=== PATIENT | male | born 1965 | race Caucasian/White ===

== ENCOUNTER 2019-02-19 16:08 | Emergency (ER) | payer BC ==
[2019-02-19 16:24] VITALS: BP 140/84; PULSE 90
[2019-02-19] MEDS ORDERED: Ondansetron 4 MG/2 ML SDV IVPUSH ONE (16:45)
[2019-02-19] MEDS ORDERED: Sodium Chloride 0.9% 1,000 ML IV SCH (16:45)
[2019-02-19] MEDS ORDERED: HYDROmorphone 0.5 MG/0.5 ML Syringe IVPUSH ONE (16:47)
--- NOTE | 2019-02-19 16:57 | EDM.PDOC ---
ED HPI GENERAL MEDICAL PROBLEM - General Chief Complaint: Abdominal Pain Stated Complaint: ABDOMINAL PAIN Time Seen by Provider: 02/19/19 16:26 Source of Information: Reports: Patient, RN Notes Reviewed History Limitations: Reports: No Limitations - History of Present Illness INITIAL COMMENTS - FREE TEXT/NARRATIVE: Patient is a 53-year-old male who presents to ED for evaluation of abdominal pain. Patient states he has a history of diverticulitis, and this feels somewhat similar to his flares that he gets. He notes he has been having some issues for the last month and a 2:30 months, however over the last 3 days this has worsened in intensity. He notes some nausea, abdominal pain, loose stools, he states he cannot remember the last time he had a solid stool. He has been trying to use prune juice and laxatives at home for management of this. Patient states that the abdominal pain kind of moves around, but he has noticed some dark maroon red type stools lately. He notes his last colonoscopy was about 3 years ago. Patient notes he has had some prior hernia surgeries, and a urinary bladder surgery when he was a young child. He did not take any sort of pain medications at home for management of this. He would rate his pain at a 10 out of 10 today. The patient denies any sort of fevers and chills, however he states that he ate some hot and cold flashes and the nausea comes and goes with the waves of pain. abdomen Pain Score (Numeric/FACES): 10 - Related Data Allergies Allergy/AdvReac Type Severity Reaction Status Date / Time aspirin Allergy Anaphylactic Verified 02/19/19 16:25 Shock naproxen [From Aleve] Allergy Anaphylactic Verified 02/19/19 16:25 Shock Home Meds: Home Meds . [No Known Home Meds] 12/13/18 [History] Past Medical History - Past Health History Medical/Surgical History: Denies Medical/Surgical History HEENT History: Reports: Other (See Below) Other HEENT History: tonsilitis, tooth infections/abscess Gastrointestinal History: Reports: Diverticulosis Genitourinary History: Reports: Other (See Below) Other Genitourinary History: Bladder surgery Neurological History: Reports: Concussion Endocrine/Metabolic History: Reports: Obesity/BMI 30+ - Infectious Disease History Infectious Disease History: Reports: Chicken Pox, Measles, Mumps - Past Surgical History HEENT Surgical History: Reports: Oral Surgery GI Surgical History: Reports: Colonoscopy, Hernia Repair/Other Male Surgical History: Reports: Other (See Below) Social & Family History - Family History Family Medical History: Noncontributory - Tobacco Use Smoking Status *Q: Current Some Day Smoker Years of Tobacco use: 10 Packs/Tins Daily: 0.2 - Caffeine Use Caffeine Use: Reports: None - Recreational Drug Use Recreational Drug Use: No - Living Situation & Occupation Living situation: Reports: , with Family (Daughter) 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 Denies: Vomiting : Denies: Dysuria, Frequency, Urgency Musculoskeletal: Reports: No Symptoms Skin: Reports: No Symptoms Neurological: Reports: No Symptoms Psychiatric: Reports: No Symptoms Hematologic/Lymphatic: Reports: No Symptoms Immunologic: Reports: No Symptoms ED EXAM, GI/ABD - Physical Exam Exam: See Below Exam Limited By: No Limitations General Appearance: Alert, WD/WN, No Apparent Distress Eyes: Bilateral: Normal Appearance Throat/Mouth: Normal Inspection, Normal Lips, Normal Teeth, Normal Gums, Normal Oropharynx, Normal Voice, No Airway Compromise Head: Atraumatic, Normocephalic Respiratory/Chest: No Respiratory Distress, Lungs Clear, Normal Breath Sounds, No Accessory Muscle Use, Chest Non-Tender Cardiovascular: Normal Peripheral Pulses, Regular Rate, Rhythm, No Murmur GI/Abdominal Exam: Normal Bowel Sounds, Soft, No Distention, No Mass, Tender ( LLQ) Rectal (Males) Exam: Normal Exam, Normal Rectal Tone, Prostate Normal, Heme - Stool Extremities: Normal Inspection, Normal Capillary Refill Neurological: Alert, Oriented, Normal Cognition, No Motor/Sensory Deficits Psychiatric: Normal Affect, Normal Mood Skin Exam: Warm, Dry, Intact, Normal Color, No Rash Course - Vital Signs Last Recorded V/S: Last Vital Signs Temp 97.3 F 02/19/19 16:21 Pulse 90 02/19/19 16:21 Resp 19 02/19/19 16:21 BP 140/84 02/19/19 16:21 Pulse Ox 93 L 02/19/19 16:21 - Orders/Labs/Meds Orders: Active Orders 24 hr Category Date Time Status Peripheral IV Care [RC] . DIRECTED Care 02/19/19 16:46 Ordered UA W/MICROSCOPIC [URIN] Stat Lab 02/19/19 16:45 Ordered Sodium Chloride 0.9% [Normal Saline] 1,000 ml Med 02/19/19 16:45 Ordered IV ASDIRECTED Sodium Chloride 0.9% [Saline Flush] Med 02/19/19 16:46 Ordered 10 ml FLUSH ASDIRECTED PRN Peripheral IV Insertion Adult [OM.PC] Stat Oth 02/19/19 16:46 Ordered Medication Orders Sodium Chloride (Normal Saline) 1,000 mls @ 999 mls/hr IV ASDIRECTED JACOB Last Admin: 02/19/19 17:04 Dose: 999 mls/hr Sodium Chloride (Saline Flush) 10 ml FLUSH ASDIRECTED PRN PRN Reason: Keep Vein Open Last Admin: 02/19/19 18:21 Dose: 10 ml Admin: 02/19/19 17:15 Dose: 10 ml Labs: Laboratory Tests 02/19/19 02/19/19 Range/Units 16:32 16:32 WBC 9.50 H (4.23-9.07) K/mm3 RBC 5.31 (4.63-6.08) M/mm3 Hgb 16.3 (13.7-17.5) gm/dl Hct 48.9 (40.1-51.0) % MCV 92.1 (79.0-92.2) fl MCH 30.7 (25.7-32.2) pg MCHC 33.3 (32.2-35.5) g/dl RDW Std Deviation 45.3 H (35.1-43.9) fL Plt Count 241 (163-337) K/mm3 MPV 10.2 (9.4-12.3) fl Neutrophils % (Manual) 70 H (40-60) % Band Neutrophils % 0 (0-10) % Lymphocytes % (Manual) 30 (20-40) % Atypical Lymphs % 0 % Monocytes % (Manual) 0 L (2-10) % Eosinophils % (Manual) 0 L (0.8-7.0) % Basophils % (Manual) 0 L (0.2-1.2) Platelet Estimate Adequate RBC Morph Comment Normal Sodium 141 (136-145) mEq/L Potassium 3.6 (3.5-5.1) mEq/L Chloride 105 (98-107) mEq/L Carbon Dioxide 24 (21-32) mEq/L Anion Gap 15.6 H (5-15) BUN 11 (7-18) mg/dL Creatinine 1.0 (0.7-1.3) mg/dL Est Cr Clr Drug Dosing 94.84 mL/min Estimated GFR (MDRD) > 60 (>60) mL/min BUN/Creatinine Ratio 11.0 L (14-18) Glucose 180 H (74-106) mg/dL Calcium 9.0 (8.5-10.1) mg/dL Total Bilirubin 0.3 (0.2-1.0) mg/dL AST 25 (15-37) U/L ALT 34 (16-63) U/L Alkaline Phosphatase 85 (46-116) U/L Total Protein 7.2 (6.4-8.2) g/dl Albumin 3.4 (3.4-5.0) g/dl Globulin 3.8 gm/dL Albumin/Globulin Ratio 0.9 L (1-2) Meds: Medications Generic Name Dose Route Start Last Admin Trade Name Freq PRN Reason Stop Dose Admin Sodium Chloride 1,000 mls @ 999 mls/hr 02/19/19 16:45 02/19/19 17:04 Normal Saline IV 999 mls/hr ASDIRECTED JACOB Administration Sodium Chloride 10 ml 02/19/19 16:46 02/19/19 18:21 Saline Flush FLUSH 10 ml ASDIRECTED PRN Administration Keep Vein Open Discontinued Medications Generic Name Dose Route Start Last Admin Trade Name Freq PRN Reason Stop Dose Admin Diatrizoate Meglum/Diatrizoate Sod 90 ml 02/19/19 18:01 02/19/19 18:21 Gastrografin 37% PO 02/19/19 18:02 90 ml ONETIME ONE Administration Hydromorphone HCl 0.5 mg 02/19/19 16:47 02/19/19 17:04 Dilaudid IVPUSH 02/19/19 16:48 0.5 mg ONETIME ONE Administration Iopamidol 100 ml 02/19/19 18:01 02/19/19 18:21 Isovue-370 (76%) IVPUSH 02/19/19 18:02 100 ml ONETIME ONE Administration Ondansetron HCl 4 mg 02/19/19 16:45 02/19/19 17:05 Zofran IVPUSH 02/19/19 16:46 4 mg ONETIME ONE Administration - Re-Assessments/Exams Free Text/Narrative Re-Assessment/Exam: 02/19/19 16:57 Patient presents to the ED for evaluation of abdominal pain, I did order CBC, CMP, UA, abdominal pelvis CT with contrast, 4 mg Zofran, 0.5 mg Dilaudid and some IV fluids for initial management. His pain is suspicious for a flare of his diverticulitis in nature. 02/19/19 18:[address] is done, and demonstrates a small liver cyst of 1.0 cm, and diverticuli within the sigmoid colon, but there is no definite inflammatory change surrounding these to indicate diverticulitis at this time. Of note the patient's rectal exam demonstrated heme-negative stool on re-exam. The patient' s white blood cell count is only very slightly mildly elevated at 9.5, which is very likely a stress reaction, we'll likely discharge the patient home with general recommendations and have him return if his symptoms should change or worsen. Departure - Departure Time of Disposition: 19:21 Disposition: Home, Self-Care 01 Condition: Fair Clinical Impression: Diverticula of colon Abdominal pain Qualifiers: Abdominal location: left lower quadrant Qualified Code(s): R10.32 - Left lower quadrant pain - Discharge Information *PRESCRIPTION DRUG MONITORING PROGRAM REVIEWED*: No *COPY OF PRESCRIPTION DRUG MONITORING REPORT IN PATIENT TRELL: No Instructions: Abdominal Pain, Adult, [id number] Referrals: PCP,None [Primary Care Provider] - Forms: ED Department Discharge Additional Instructions: You have been evaluated in the ED for abdominal pain. Your CT demonstrated that you do have diverticuli of the sigmoid colon, however there was no inflammation around these which would suggest an active diverticulitis. You have received IV fluid in the ED today with some IV pain medications. Over the next 24-48 hours please try to limit diet to clear liquids and advance as tolerate to a bland diet to alleviate symptoms. You may take [id number] Tylenol or ibuprofen every 6 hours for further pain relief. Please return to the ED if your symptoms should change or worsen. - My Orders Last 24 Hours: My Active Orders 02/19/19 16:45 UA W/MICROSCOPIC [URIN] Stat Sodium Chloride 0.9% [Normal Saline] 1,000 ml IV ASDIRECTED 02/19/19 16:46 Peripheral IV Care [RC] . DIRECTED Sodium Chloride 0.9% [Saline Flush] 10 ml FLUSH ASDIRECTED PRN Peripheral IV Insertion Adult [OM.PC] Stat - Assessment/Plan Last 24 Hours: My Active Orders 02/19/19 16:45 UA W/MICROSCOPIC [URIN] Stat Sodium Chloride 0.9% [Normal Saline] 1,000 ml IV ASDIRECTED 02/19/19 16:46 Peripheral IV Care [RC] . DIRECTED Sodium Chloride 0.9% [Saline Flush] 10 ml FLUSH ASDIRECTED PRN Peripheral IV Insertion Adult [OM.PC] Stat
[2019-02-19] MEDS: Sodium Chloride 0.9% 10 ML Syringe FLUSH PRN ×2 (17:15→18:21)
[2019-02-19] MEDS ORDERED: Diatrizoate Meglumine/Diatrizoate Sodium 37% 120 ML Bottle PO ONE (18:01)
[2019-02-19] MEDS ORDERED: Iopamidol 755 Mg/ML 100 ML Bottle IVPUSH ONE (18:01)
--- NOTE | 2019-02-19 18:47 | CT ---
CT abdomen and pelvis Technique: Multiple axial sections were obtained from above the dome of the diaphragm to the pubic symphysis. Intravenous and oral contrast has been given. Findings: Diverticuli are seen within the sigmoid colon. I do not see any definite inflammatory change to indicate diverticulitis. Appendix is seen and is normal in size. Visualized lung bases show nothing acute. Dome of the right lobe of the liver shows a low-density lesion which has Hounsfield unit measurements of a cyst and measures 1.0 cm. No additional abnormality is seen within the liver. Spleen appears within normal limits. Adrenal glands show no nodule. Pancreas is within normal limits. Gallbladder contains no calcified gallstones. Kidneys show symmetric contrast enhancement with no hydronephrosis or mass being seen. Aorta shows no aneurysm. No retroperitoneal adenopathy or mesenteric abnormalities are seen. No pelvic mass or adenopathy is seen. No free fluid or inflammatory change is seen. Delayed images shows contrast within the distal ureters and bladder. Bone window settings appear within normal limits for the patient's age. Impression: 1. Small liver cyst. 2. Nothing acute is appreciated on CT study of the abdomen and pelvis. Diagnostic code #2
== END 2019-02-19 19:33 | disposition home or self-care (01) ==
LOC: JD.ED 16:08
DX: K57.30 Diverticulosis of large intestine without perforation or abscess without bleeding (principal); E66.9 Obesity, unspecified; Z68.29 Body mass index [BMI] 29.0-29.9, adult; F17.210 Nicotine dependence, cigarettes, uncomplicated; Z88.8 Allergy status to other drugs, medicaments and biological substances
CPT/HCPCS: 36415; 74177; 80053; 85007; 85027; 96361; 96374; 96375; 99284; J1170; J2405; J7040; Q9963; Q9967

== ENCOUNTER → 2019-03-26 | Day surgery (SDC) | payer BC ==
[~2019-03-26] MED LIST: Albuterol 0.083% 2.5 MG/3 ML Neb Soln NEB SCH; FLU Vacc QS2019-20(6MOS+)/PF 60 MCG/0.5 ML SYRINGE IM ONE; Lactated Ringers 1,000 ML IV SCH; Lidocaine 1% 4 ML ONE; Lidocaine 1%/Sod Bicarbonate in NS 8.4% 1 ML Syringe IDERM PRN; Propofol 200 MG/20 ML SDV ONE; Sodium Chloride 0.9% 10 ML Syringe FLUSH PRN
--- NOTE | 2019-03-26 07:35 | PCM.PREANE ---
Preanesthetic Assessment - Anesthesia/Transfusion/Family Hx Anesthesia History: Prior Anesthesia Without Reaction Family History of Anesthesia Reaction: No Transfusion History: No Prior Transfusion(s) - Review of Systems General: No Symptoms Pulmonary: No Symptoms Cardiovascular: No Symptoms Gastrointestinal: No Symptoms Neurological: No Symptoms Other: Reports: None - Physical Assessment NPO Status Date: 03/25/19 NPO Status Time: 16:00 ASA Class: 2 Mental Status: Alert & Oriented x3 Airway Class: Mallampati = 1 Dentition: Reports: Broken Tooth/Teeth, Missing Tooth/Teeth ROM/Head Extension: Full Lungs: Clear to Auscultation, Normal Respiratory Effort Cardiovascular: Regular Rate, Regular Rhythm - Allergies Allergies/Adverse Reactions: Allergies Allergy/AdvReac Type Severity Reaction Status Date / Time aspirin Allergy Anaphylactic Verified 03/25/19 11:57 Shock naproxen [From Aleve] Allergy Anaphylactic Verified 03/25/19 11:57 Shock - Acknowledgements Anesthesia Type Planned: MAC Pt an Appropriate Candidate for the Planned Anesthesia: Yes Alternatives and Risks of Anesthesia Discussed w Pt/Guardian: Yes Pt/Guardian Understands and Agrees with Anesthesia Plan: Yes PreAnesthesia Questionnaire - Past Health History Medical/Surgical History: Denies Medical/Surgical History HEENT History: Reports: Sinusitis, Other (See Below) Other HEENT History: tonsilitis, tooth infections/abscess Cardiovascular History: Reports: None Respiratory History: Reports: Other (See Below) Other Respiratory History: acute bronchitis, mild reactive airway disease Gastrointestinal History: Reports: Chronic Diarrhea, Diverticulosis, GERD, Other (See Below) Other Gastrointestinal History: epigastric pain, LLQ pain Genitourinary History: Reports: Other (See Below) Other Genitourinary History: Bladder surgery FIRMWARE MANAGER History: Reports: None Musculoskeletal History: Reports: None Neurological History: Reports: Concussion Psychiatric History: Reports: None Endocrine/Metabolic History: Reports: Obesity/BMI 30+, Vitamin D Deficiency Hematologic History: Reports: None Immunologic History: Reports: None Oncologic (Cancer) History: Reports: None Dermatologic History: Reports: None - Infectious Disease History Infectious Disease History: Reports: Chicken Pox, Measles, Mumps - Past Surgical History Head Surgeries/Procedures: Reports: None HEENT Surgical History: Reports: Oral Surgery Cardiovascular Surgical History: Reports: None Respiratory Surgical History: Reports: None GI Surgical History: Reports: Colonoscopy, Hernia Repair/Other Female Surgical History: Reports: None Male Surgical History: Reports: None, Other (See Below) Musculoskeletal Surgical History: Reports: None Oncologic Surgical History: Reports: None Dermatological Surgical History: Reports: None - SUBSTANCE USE Smoking Status *Q: Current Every Day Smoker Recreational Drug Use History: No - HOME MEDS Home Medications: Home Meds Albuterol [Ventolin HFA] 1 - 2 puff INH Q4H PRN 03/25/19 [History] Ergocalciferol (Vitamin D2) [Vitamin D2] 50 mcg PO FR 03/25/19 [History] - CURRENT (IN HOUSE) MEDS Current Meds: Current Medications Albuterol (Proventil Neb Soln) 2.5 mg NEB ONETIME JACOB Stop: 03/26/19 18:00 Lactated Ringer's (Ringers, Lactated) 1,000 mls @ 125 mls/hr IV ASDIRECTED JACOB Stop: 03/26/19 23:00 Influenza Virus Vaccine (Fluzone Quad Syringe) 60 mcg IM .ONCE ONE Stop: 03/26/19 12:16 Lidocaine/Sodium Bicarbonate (Buffered Lidocaine 1% In Ns 8.4%) 0.25 ml IDERM ONETIME PRN PRN Reason: Prior to IV Start Stop: 03/26/19 18:00 Sodium Chloride (Saline Flush) 10 ml FLUSH ASDIRECTED PRN PRN Reason: Keep Vein Open Stop: 03/26/19 18:00 Discontinued Medications Lidocaine HCl (Xylocaine-Mpf 1%) Confirm Administered Dose 4 mls @ as directed .ROUTE .STK-MED ONE Stop: 03/26/19 07:10 Influenza Virus Vaccine (Pharmacy To Dose - Influenza Vaccine) 1 each IM ONETIME JACOB Propofol (Diprivan 20 Ml) Confirm Administered Dose 200 mg .ROUTE .STK-MED ONE Stop: 03/26/19 07:09
--- NOTE | 2019-03-26 08:36 | PCM.PRNOTE ---
- Free Text/Narrative Note: Date: 03/26/2019 Endoscopist: Skinny Chance MD Reason for procedure: screening colonoscopy, initial Hx: 53 yo man with history of diverticulitis years ago, treated with antibiotics , with diagnostic colonoscopy which was unsatisfactory due to poor prep. Detailed report: The patient was placed in the left lateral decubitus position and underwent MAC anesthesia. Once sedation was adequate, a time out was performed. Insepcted of the anus was normal. Digital rectal exam was unremarkable. The colonoscope was inserted and advanced all the way to the ileocecal valve. Prep was good. The scope was slowly withdrawn and the mucosa carefully inspected. No polyps were identified. There was scattered diverticular disease throughout the colon, most notable in the sigmoid. No significant hemorrhoidal disease or other pathology noted on retroflexion of the scope in the rectum. The patient tolerated the procedure well; no complications. Repeat screening in 5-10 years. Skinny Chance MD General Surgery
--- NOTE | 2019-03-26 08:40 | PCM48HPAN ---
Post Anesthesia Note - EVALUATION WITHIN 48HRS OF ANESTHETIC Vital Signs in Normal Range: Yes Patient Participated in Evaluation: Yes Respiratory Function Stable: Yes Airway Patent: Yes Cardiovascular Function Stable: Yes Hydration Status Stable: Yes Pain Control Satisfactory: Yes Nausea and Vomiting Control Satisfactory: Yes Mental Status Recovered: Yes Vital Signs: Last Vital Signs Temp 36.2 C 03/26/19 07:30 Pulse 64 03/26/19 07:30 Resp 16 03/26/19 07:30 BP 122/78 03/26/19 07:30 Pulse Ox 93 L 03/26/19 07:30
[2019-03-26 09:49] VITALS: BP 105/60; PULSE 65
== END | disposition home or self-care (01) ==
LOC: JD.SDS 07:15
PROVIDERS: ATTEND Surgery
DX: Z12.11 Encounter for screening for malignant neoplasm of colon (principal); K57.30 Diverticulosis of large intestine without perforation or abscess without bleeding; K21.9 Gastro-esophageal reflux disease without esophagitis; E66.9 Obesity, unspecified; E55.9 Vitamin D deficiency, unspecified; F17.210 Nicotine dependence, cigarettes, uncomplicated; Z88.6 Allergy status to analgesic agent; Z68.30 Body mass index [BMI] 30.0-30.9, adult
CPT/HCPCS: 45378; 90686; J2001; J2704; J7120; 00812

== ENCOUNTER 2019-07-04 18:10 | Emergency (ER) | payer SELFPAY ==
[2019-07-04 19:29] VITALS: BP 132/87; PULSE 101
[2019-07-04] MEDS ORDERED: Penicillin V Potassium 500 MG Tab PO ONE (20:29)
[2019-07-04] MEDS ORDERED: Ketorolac 60 MG/2 ML SDV IM ONE (20:29)
--- NOTE | 2019-07-04 20:36 | EDM.PDOC ---
ED HPI GENERAL MEDICAL PROBLEM - General Chief Complaint: ENT Problem Stated Complaint: FLU SX Time Seen by Provider: 07/04/19 19:42 Source of Information: Reports: Patient, RN Notes Reviewed History Limitations: Reports: No Limitations - History of Present Illness INITIAL COMMENTS - FREE TEXT/NARRATIVE: Patient is a 53-year-old male who presents to the ED for the evaluation of flulike symptoms. Patient states that he developed a sore throat today, and states that this is getting worse, he also has body aches, with a fever and feels chilled. He is not having any headache at this time. He does note that he did get a flu shot this season. He is not having any nausea/vomiting/ diarrhea, any chest pain or shortness of breath. Patient does not have a primary care provider. Throat Pain Score (Numeric/FACES): 8 - Related Data Allergies Allergy/AdvReac Type Severity Reaction Status Date / Time aspirin Allergy Anaphylactic Verified 03/26/19 07:50 Shock naproxen [From Aleve] Allergy Anaphylactic Verified 03/26/19 07:50 Shock Home Meds: Home Meds Albuterol [Ventolin HFA] 1 - 2 puff INH Q4H PRN 03/25/19 [History] Penicillin V Potassium 500 mg PO TID #29 tab 07/04/19 [Rx] Past Medical History HEENT History: Reports: Sinusitis, Other (See Below) Other HEENT History: tonsilitis, tooth infections/abscess Respiratory History: Reports: Other (See Below) Other Respiratory History: acute bronchitis, mild reactive airway disease Gastrointestinal History: Reports: Chronic Diarrhea, Diverticulosis, GERD, Other (See Below) Other Gastrointestinal History: epigastric pain, LLQ pain Genitourinary History: Reports: Other (See Below) Other Genitourinary History: Bladder surgery Neurological History: Reports: Concussion Endocrine/Metabolic History: Reports: Obesity/BMI 30+, Vitamin D Deficiency - Infectious Disease History Infectious Disease History: Reports: Chicken Pox, Measles, Mumps - Past Surgical History HEENT Surgical History: Reports: Oral Surgery GI Surgical History: Reports: Colonoscopy, Hernia Repair/Other Social & Family History - Family History Family Medical History: Noncontributory - Tobacco Use Smoking Status *Q: Never Smoker - Caffeine Use Caffeine Use: Reports: Coffee, Soda - Recreational Drug Use Recreational Drug Use: No - Living Situation & Occupation Living situation: Reports: , with Family (Daughter) 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) ED ROS ENT - Review of Systems Review Of Systems: See Below Constitutional: Reports: Fever, Chills, Malaise, Decreased Appetite HEENT: Reports: Throat Pain Respiratory: Denies: Shortness of Breath, Cough Cardiovascular: Denies: Chest Pain GI/Abdominal: Denies: Abdominal Pain, Constipation, Diarrhea, Nausea, Vomiting Neurological: Denies: Headache ED EXAM, ENT - Physical Exam Exam: See Below Exam Limited By: No Limitations General Appearance: Alert, WD/WN, No Apparent Distress Eye Exam: Bilateral Eye: EOMI, Normal Inspection, PERRL Ears: Normal External Exam Nose: Normal Inspection Mouth/Throat: Normal Inspection, Normal Gums, Normal Lips, Normal Teeth, Pharyngeal Erythema. No: Drooling, Dry Mucous Membrane, Tonsillar Exudates, Trismus, Uvular Deviation, Uvular Edema Head: Atraumatic, Normocephalic Neck: Normal Inspection, Supple, Tender Lateral Respiratory/Chest: No Respiratory Distress, Chest Non-Tender Cardiovascular: Normal Peripheral Pulses, Regular Rate, Rhythm, No Murmur GI/Abdominal: Normal Bowel Sounds, Soft, Non-Tender, No Distention, No Mass Extremities: Normal Inspection, Normal Capillary Refill Neurological: Alert, Oriented, Normal Cognition, No Motor/Sensory Deficits Psychiatric: Normal Affect, Normal Mood Skin: Warm, Dry, Intact, Normal Color, No Rash Course - Vital Signs Last Recorded V/S: Last Vital Signs Temp 101.5 F H 07/04/19 19:25 Pulse 101 H 07/04/19 19:25 Resp 20 07/04/19 19:25 BP 132/87 07/04/19 19:25 Pulse Ox 99 07/04/19 19:25 - Orders/Labs/Meds Meds: Medications Discontinued Medications Generic Name Dose Route Start Last Admin Trade Name Freq PRN Reason Stop Dose Admin Ketorolac Tromethamine 60 mg 07/04/19 20:29 Toradol IM 07/04/19 20:30 ONETIME ONE Penicillin V Potassium 500 mg 07/04/19 20:29 Veetids PO 07/04/19 20:30 ONETIME ONE - Re-Assessments/Exams Free Text/Narrative Re-Assessment/Exam: 07/04/19 20:37 Patient presents to the ED for evaluation of a sore throat and other flulike symptoms. An influenza swab and strep swab were obtained at time of triage, the patient did test positive for strep at this time. I will provide the patient with the start of his penicillin at today's visit and will prescribe some to the pharmacy of his choosing. I did also order 60 mg IM Toradol for further management. Departure - Departure Time of Disposition: 20:38 Disposition: Home, Self-Care 01 Condition: Fair Clinical Impression: Strep throat - Discharge Information *PRESCRIPTION DRUG MONITORING PROGRAM REVIEWED*: No *COPY OF PRESCRIPTION DRUG MONITORING REPORT IN PATIENT TRELL: No Prescriptions: Penicillin V Potassium 500 mg PO TID #29 tab Instructions: Strep Throat, [id number] Referrals: PCP,None [Primary Care Provider] - Forms: ED Department Discharge, ED Return to Work/School Form Additional Instructions: You were evaluated in the ER today regarding your sore throat and flulike symptoms. Your influenza screen was negative at today's visit, however your strep screen was positive. You were started on oral penicillin, you will need to take 1 tablet 3 times daily for the next 10 days. Your prescription was electronically prescribed to the [place] pharmacy located in the [employer] store. You may go there tomorrow to pick these up. Please try not to share fluids with other people if possible. Recommend you take 5 mg Tylenol or 6 oh milligrams ibuprofen every 6 hours for further pain relief. Do not exceed 3200 mg ibuprofen or 4000 mg Tylenol in a 24 -hour time span. Recommend that you stick to a clear liquid diet advance to a bland soft diet as tolerated as your sore throat lessens. Please return to the ER at any time however if your symptoms change or worsen. Sepsis Event Note - Evaluation Sepsis Screening Result: No Definite Risk - Focused Exam Vital Signs: Vital Signs Temp Pulse Resp BP Pulse Ox 07/04/19 19:25 101.5 F H 101 H 20 132/87 99 Date Exam was Performed: 07/04/19 Time Exam was Performed: 20:40
== END 2019-07-04 20:53 | disposition home or self-care (01) ==
LOC: JD.ED 18:10
DX: J02.0 Streptococcal pharyngitis (principal); Z88.6 Allergy status to analgesic agent; Z88.8 Allergy status to other drugs, medicaments and biological substances
CPT/HCPCS: 87430; 87804; 96372; 99283; A9270; J1885

== ENCOUNTER 2023-10-13 20:24 | Emergency (ER) | payer BC ==
[2023-10-13] MEDS: Morphine 4 MG/ML Syringe IVPUSH ONE (22:21)
[2023-10-13] MEDS: Ondansetron 4 MG/2 ML SDV IVPUSH ONE (22:21)
[2023-10-13] MEDS: Lactated Ringers 1,000 ML IV SCH (22:21)
[2023-10-13] MEDS: Sodium Chloride 0.9% 10 ML Syringe FLUSH PRN (22:22)
[2023-10-13 22:24] LABS: BASOPHILS PERCENT AUTO 0.2 % (0.0-1.0); EOSINOPHILS ABSOLUTE AUTO 0.1 K/mm3 (0.0-0.4); HEMATOCRIT 47.1 % (42.0-52.0); HEMOGLOBIN 15.8 gm/dl (14.0-18.0); IMMATURE GRAN ABSOLUTE AUTO 0.06 K/mm3 (0.00-0.05); IMMATURE GRAN PERCENT AUTO 0.5 % (0.0-0.4); LYMPHOCYTES ABSOLUTE AUTO 2.4 K/mm3 (1.0-4.8); LYMPHOCYTES PERCENT AUTO 18.2 % (24.0-44.0); MEAN CORPUSCULAR HEMOGLOBIN 31.2 pg (28.0-32.0); MEAN CORPUSCULAR HGB CONC 33.5 g/dl (32.0-36.0); MEAN CORPUSCULAR VOLUME 93.1 fl (83.0-99.0); MONOCYTES PERCENT AUTO 7.7 % (0.0-8.0); NEUTROPHILS ABSOLUTE AUTO 9.5 K/mm3 (1.8-7.7); NEUTROPHILS PERCENT AUTO 72.4 % (41.0-71.0); PLATELET COUNT,PLT 194 K/mm3 (150-400); RED BLOOD CELL COUNT 5.06 M/mm3 (4.52-5.90); WHITE BLOOD CELL COUNT,WBC 13.05 K/mm3 (3.9-11.3)
[2023-10-13 22:53] LABS: A/G RATIO 0.9 (1-2); ALBUMIN 3.4 g/dl (3.4-5.0); ANION GAP 14.2 (5-15); BILIRUBIN TOTAL 0.4 mg/dL (0.2-1.0); BUN/CREATININE RATIO 12.2 (14-18); CALCIUM 8.7 mg/dL (8.5-10.1); CREATININE 0.9 mg/dL (0.7-1.3); EST CRCL DRUG DOSING (CG) 96.45 mL/min; POTASSIUM,K 4.2 mEq/L (3.5-5.1); PROTEIN TOTAL,TP 7.4 g/dl (6.4-8.2)
[2023-10-13] MEDS: Iopamidol 612 MG/ML 100 ML Bottle IVPUSH ONE (23:25)
[2023-10-14] MEDS: metroNIDAZOLE 500 MG Tab PO ONE (00:34)
[2023-10-14 00:38] VITALS: BP 131/71; PULSE 74
== END 2023-10-14 00:37 | disposition home or self-care (01) ==
LOC: JD.ED 20:24
DX: K57.92 Diverticulitis of intestine, part unspecified, without perforation or abscess without bleeding (principal); E66.9 Obesity, unspecified; Z88.8 Allergy status to other drugs, medicaments and biological substances; Z79.899 Other long term (current) drug therapy; Z86.19 Personal history of other infectious and parasitic diseases; Z68.29 Body mass index [BMI] 29.0-29.9, adult
CPT/HCPCS: 36415; 74177; 80053; 83690; 85025; 96361; 96374; 96375; 99284; A9270; J2270; J2405; J3490; J7120; Q9967